=== PATIENT | female | born 1950 | race Two or more races ===

== ENCOUNTER 2018-07-03 21:10 | Emergency (ER) | payer BC, OTHER ==
[~2018-07-03] VITALS: Ht 170.2 cm; Wt 59.0 kg
--- NOTE | 2018-07-03 22:14 | NUR ---
PT BIB FRIEND FROM [facility] C/C HTN WITH L SIDED HEADACHE X 1 WEEK. NO MEDS TAKEN ADMINISTRATIVE SERVICES ASSISTANT. PT STATES SHE HAD BLURRED VISSION EARLIER IN THE DAY. NO DEFECITS NOTED. PT AOX4. NAD NOTED. RESP EVEN AND UNLABORED. PT ON MONITOR IN BED 8 WITH FRIEND AT BEDSIDE.
--- NOTE | 2018-07-03 23:00 | NUR ---
PT TAKEN TO RADIOLOGY VIA [facility]
[2018-07-03 23:03] LABS: BASOPHILS % (AUTO) 0.6 % (0.0-2.0); EOSINOPHILS % (AUTO) 0.4 % (0.0-6.0); HEMATOCRIT 43 % (33-45); HEMOGLOBIN 14.6 g/dL (11.5-14.8); LYMPHOCYTES % (AUTO) 28.7 % (20.0-44.0); MEAN CORPUSCULAR HGB CONC 34 g/dl (31.0-36.0); MEAN CORPUSCULAR VOLUME 95 fL (82-100); MONOCYTES # (AUTO) 0.5 /CMM (0.1-1.30); MONOCYTES % (AUTO) 6.7 % (2.0-12.0); NEUTROPHILS # (AUTO) 4.3 /CMM (1.8-8.9); NEUTROPHILS % (AUTO) 63.6 % (43.0-81.0); PLATELET COUNT (AUTO) 335 /CMM (150-450); RED BLOOD CELL COUNT(AUTO) 4.52 MIL/uL (4.0-5.2); WHITE BLOOD COUNT (AUTO) 6.8 K/uL (4.3-11.0)
[2018-07-03 23:09] LABS: CALCIUM, SERUM 9.7 mg/dL (8.5-10.1); CREATININE 0.5 mg/dL (0.6-1.3); POTASSIUM 3.6 mmol/L (3.5-5.1)
[2018-07-03] MEDS ORDERED: hydrALAZINE HCL IV 20 MG VIAL IV ONE (23:30)
[2018-07-04] MEDS ORDERED: hydrALAZINE HCL IV 20 MG VIAL ONE (00:08)
[2018-07-04 00:20] VITALS: BP 163/86
--- NOTE | 2018-07-04 00:51 | NUR ---
IV removed. Catheter intact and site benign. Pressure and 4x4 applied to site. No bleeding noted.Patient discharged to home in stable condition. Written and verbal after care instructions given. Patient verbalizes understanding of instruction. PT AMBULATORY WITH STEADY GAIT ACCOMPANIED BY FAMILY.
== END 2018-07-04 00:53 | disposition home or self-care (01) ==
LOC: ER 21:18
DX: I10 Essential (primary) hypertension (principal); Z88.2 Allergy status to sulfonamides; Z88.8 Allergy status to other drugs, medicaments and biological substances
CPT/HCPCS: 36415; 70450; 80048; 85025; 96374; 99284; A4606; J0360